=== PATIENT | female | born 1955 | race Hispanic/Latino ===

== ENCOUNTER 2017-10-25 18:28 | Observation (INO) | payer SELFPAY ==
[~2017-10-25] VITALS: Ht 152.4 cm; Wt 72.6 kg
[2017-10-25] MEDS ORDERED: SODIUM CHLORIDE 0.9% 1000ML 1,000 ML IV STA (18:55)
[2017-10-25] MEDS ORDERED: PANTOPRAZOLE 40 MG 10ML VIAL IV STA (18:55)
[2017-10-25] MEDS ORDERED: ONDANSETRON HCL INJ 2 MG/ML VIAL IV STA (18:55)
[2017-10-25] MEDS ORDERED: METOPROLOL TARTRATE INJ 1 MG/ML VIAL IV ONE (19:00)
[2017-10-25] MEDS ORDERED: ASPIRIN 81 MG CHEW TAB PO ONE ×2 (19:00→22:30)
[2017-10-25 19:09] LABS: BASOPHILS % 0.4 % (0.0-1.0); HEMATOCRIT 40.2 % (34.2-44.1); HEMOGLOBIN 14.3 g/dL (12.0-16.0); LYMPHOCYTES # (AUTO) 1.7 (1.0-3.2); LYMPHOCYTES % 14.7 % (18.0-39.1); MEAN CORPUSCULAR HEMOGLOBIN 30.8 pg (28-32); MEAN CORPUSCULAR HGB CONC 35.6 g/dL (31-35); MEAN CORPUSCULAR VOLUME 86.5 fL (81-99); MONOCYTES # (AUTO) 0.3 (0.2-0.8); MONOCYTES % 2.9 % (4.4-11.3); NEUTROPHILS # (AUTO) 9.2 (2.1-6.9); NEUTROPHILS % 81.7 % (38.7-80.0); PLATELET COUNT 304 x10e3/uL (140-360); RED BLOOD COUNT 4.65 x10e6/uL (3.6-5.1); RED CELL DISTRIBUTION WIDTH 12.7 % (11.7-14.4)
[2017-10-25 19:14] LABS: CLARITY,URINE SL CLOUDY (CLEAR); COLOR,URINE YELLOW (YELLOW); LEUKOCYTE ESTERASE ,URINE NEGATIVE (NEGATIVE); NITRITE,URINE NEGATIVE (NEGATIVE)
[2017-10-25 19:15] LABS: BILIRUBIN,URINE NEGATIVE (NEGATIVE); KETONES,URINE 1+ (NEGATIVE); PROTEIN,URINE DIPSTICK 1+ (NEGATIVE); URINE UROBILINOGEN 0.2 mg/dL (0.2 - 1)
[2017-10-25 19:30] LABS: ALANINE AMINOTRANSFERASE 15 IU/L (0-55); ALBUMIN 3.8 g/dL (3.5-5.0); ALBUMIN/GLOBULIN RATIO 1.1 (0.8-2.0); ALKALINE PHOSPHATASE 84 IU/L (40-150); AMYLASE 58 U/L (25-125); ANION GAP 15.8 mmol/L (8-16); BLOOD UREA NITROGEN 19 mg/dL (7-26); BUN/CREATININE RATIO 26 (6-25); CALCIUM 9.3 mg/dL (8.4-10.2); CARBON DIOXIDE 29 mmol/L (22-29); CHLORIDE 98 mmol/L (98-107); CREATINE KINASE 111 IU/L (29-168); CREATININE, SERUM 0.72 mg/dL (0.57-1.11); EST GLOMERULAR FILTRATION RATE > 60 ML/MIN (60-); GLUCOSE 154 mg/dL (74-118); LIPASE 15 U/L (8-78); MAGNESIUM 1.7 MG/DL (1.3-2.1); SODIUM 140 mmol/L (136-145)
[2017-10-25 19:36] LABS: INR 1.03; POTASSIUM 2.8 mmol/L (3.5-5.1); PROTHROMBIN TIME 12.7 seconds (11.9-14.5)
[2017-10-25 19:37] LABS: PARTIAL THROMBOPLASTIN TIME 24.9 seconds (23.8-35.5)
[2017-10-25] MEDS ORDERED: POTASSIUM CHLORIDE 20 MEQ TAB CR PO STA (19:39)
[2017-10-25 19:41] LABS: BACTERIA,URINE MANY /HPF; RBC,URINE 21-50 /HPF (0-5); WBC,URINE (MAN) 0-5 /HPF (0-5)
[2017-10-25 19:42] LABS: EPITHELIAL CELLS,URINE MANY /LPF
--- NOTE | 2017-10-25 19:42 | Diagnostic Imaging Report ---
Examination: Single AP view of the chest. COMPARISON: None. INDICATION: Chest pain DISCUSSION: Lines/tubes: None. Lungs: The lungs are well inflated and clear. No pneumonia or pulmonary edema. Pleura: No pleural effusion or pneumothorax. Heart and mediastinum: The heart and the mediastinum are unremarkable. Bones and soft tissues: No acute bony abnormalities. IMPRESSION: 1. No acute cardiopulmonary abnormalities. Signed by: Dr. Ryan Wren M.D. on 10/25/2017 7:38 PM
[2017-10-25] MEDS ORDERED: POTASSIUM CHLORIDE 10MEQ/100ML 200 ML IV ONE (19:45)
[2017-10-25] MEDS ORDERED: IRBESARTAN150 MG PO (20:45)
[2017-10-25] MEDS ORDERED: ATENOLOL50 MG PO (20:45)
[2017-10-25] MEDS ORDERED: METOPROLOL SUCC25 MG PO (20:45)
[2017-10-25] MEDS ORDERED: AMLODIPINE BESY10 MG PO (20:45)
--- NOTE | 2017-10-25 22:04 | Diagnostic Imaging Report ---
EXAM: CT ABDOMEN/PELVIS W DATE: 10/25/2017 8:16 PM INDICATION: Nausea, vomiting, left-sided pain COMPARISON: None TECHNIQUE: The abdomen and pelvis were scanned using a multidetector helical scanner. Coronal and sagittal reformations were obtained. CT low dose techniques were utilized, as applicable. IV Contrast: 100 ml Isovue 300/370 FINDINGS: LOWER THORAX: No consolidations LIVER/BILIARY: Punctate too small to characterize right hepatic liver hypodensity. Focal calcification along the right inferior posterior liver margin, which may be dystrophic. No ductal dilatation. GALLBLADDER: Unremarkable SPLEEN: Unremarkable PANCREAS: Unremarkable ADRENALS: No nodules KIDNEYS: Probable left inferior renal cyst. No hydronephrosis. GI TRACT: No wall thickening or evidence of obstruction. Normal appendix. Diverticulosis, most prominent the sigmoid colon, without definite acute inflammatory changes. VESSELS: Mild atherosclerotic changes. PERITONEUM/RETROPERITONEUM: No free air or fluid LYMPH NODES: No lymphadenopathy REPRODUCTIVE ORGANS/BLADDER: Unremarkable SOFT TISSUES: Unremarkable BONES: Scattered degenerative changes, worse at L4-S1. IMPRESSION: No acute abnormality. Diverticulosis without diverticulitis. Signed by: Dr Lara Dunn MD on 10/25/2017 10:00 PM
[2017-10-25] MEDS ORDERED: MORPHINE SULFATE 2 MG/ML SYR IV PRN (22:30)
[2017-10-25] MEDS ORDERED: DEXTROSE 50% SYRINGE 50 ML IV PRN (22:30)
[2017-10-25] MEDS ORDERED: ONDANSETRON HCL INJ 2 MG/ML VIAL IV PRN (22:30)
[2017-10-25] MEDS ORDERED: SODIUM CHLORIDE 0.9% 50ML 50 ML ONE (22:38)
[2017-10-25] MEDS ORDERED: IOPAMIDOL 370 MG/ML 200 ML INFUS..BTL INJ ONE (22:38)
[2017-10-26 03:24] LABS: BASOPHILS % 0.3 % (0.0-1.0); EOSINOPHILS % 0.2 % (0.0-6.0); HEMOGLOBIN 11.4 g/dL (12.0-16.0); LYMPHOCYTES # (AUTO) 2.7 (1.0-3.2); LYMPHOCYTES % 23.2 % (18.0-39.1); MEAN CORPUSCULAR HEMOGLOBIN 30.7 pg (28-32); MEAN CORPUSCULAR HGB CONC 34.5 g/dL (31-35); MEAN CORPUSCULAR VOLUME 88.9 fL (81-99); MONOCYTES # (AUTO) 0.8 (0.2-0.8); MONOCYTES % 7.3 % (4.4-11.3); NEUTROPHILS # (AUTO) 7.9 (2.1-6.9); NEUTROPHILS % 68.5 % (38.7-80.0); PLATELET COUNT 249 x10e3/uL (140-360); RED BLOOD COUNT 3.71 x10e6/uL (3.6-5.1); RED CELL DISTRIBUTION WIDTH 12.9 % (11.7-14.4)
[2017-10-26 03:33] LABS: ANION GAP 14.2 mmol/L (8-16); BLOOD UREA NITROGEN 14 mg/dL (7-26); BUN/CREATININE RATIO 22 (6-25); CARBON DIOXIDE 28 mmol/L (22-29); CHLORIDE 103 mmol/L (98-107); CHOL/HDL RATIO 3.7 (3.0-3.6); CHOLESTEROL 170 MD/DL (0-199); CREATININE, SERUM 0.65 mg/dL (0.57-1.11); EST GLOMERULAR FILTRATION RATE > 60 ML/MIN (60-); GLUCOSE 112 mg/dL (74-118); HDL CHOLESTEROL 46 MG/DL (40-60); LDL CHOLESTEROL 108 MG/DL (60-130); MAGNESIUM 1.8 MG/DL (1.3-2.1); POTASSIUM 3.2 mmol/L (3.5-5.1); SODIUM 142 mmol/L (136-145); TRIGLYCERIDES 82 MG/DL (0-149)
[2017-10-26 03:50] LABS: CREATINE KINASE MB 2.1 ng/mL (0-5.0)
[2017-10-26] MEDS: INSULIN REGULAR, HUMAN 100 UNIT/1 ML 3ML VIAL SQ SCH ×4 (07:26→20:48)
[2017-10-26] MEDS ORDERED: ASPIRIN 81 MG ENTERIC COATED PO SCH (09:00)
[2017-10-26 11:21] LABS: CREATINE KINASE MB 1.8 ng/mL (0-5.0)
[2017-10-26 16:26] VITALS: BP 118/56
[2017-10-26 19:40] VITALS: BP 130/61
[2017-10-26 20:00] VITALS: BP 130/61
--- NOTE | 2017-10-26 20:36 | History and Physical ---
This patient came into the ED for nausea and vomiting for 4 days. HISTORY OF PRESENT ILLNESS: Ms. Schrader has a history of hypertension. She was in her usual state of health until 4 days prior to admission. The patient came into the ER with nausea and vomiting for 4 days, but on the day of admission the patient complains of chest pain. The patient is admitted here through the ED for chest pain rule out ACS and also for severe dehydration and nausea and vomiting. PAST MEDICAL HISTORY: History of hypertension, history of urinary calculi. PAST SURGICAL HISTORY: . HOME MEDICATIONS: Amlodipine 10 mg, Atenolol 50 mg, and 50 mg, and metoprolol ER 25 mg. SOCIAL HISTORY: No ETOH, no IV drug abuse. REVIEW OF SYSTEMS: Positive for chest pain. No shortness of breath. Positive for nausea and vomiting. No constipation. No rectal bleeding. No hematochezia. No hematemesis. No blurry vision. No diplopia. Positive for some dryness and feeling weak. PHYSICAL EXAMINATION VITAL SIGNS: Temperature 98.7, blood pressure 118/56, respirations 16, pulse oximetry 97%. HEENT: Normocephalic, atraumatic. Pupils react to light and accommodation. CVS: S1 and S2 normal. Regular rate and rhythm. ABDOMEN: Nontender. Nondistended. BACK: Normal to inspection. NEUROLOGIC: Alert and oriented x3. No focal deficits. EKG was no acute process. Normal QRS complex. Chest x-ray normal lung markings, no acute disease. Abdominal CT scan are normal. Study was interpreted by the radiologist. There was some diverticulosis without any diverticulitis. LABORATORY DATA: CBC normal, except with a white count of 11.9. Chemistries normal except marked hyperkalemia 2.8, marked hyperglycemia of 158. Amylase normal. Lipase normal. Cardiac labs are normal. Coags are normal. Urinalysis: RBCs present, many bacteria present too. ASSESSMENT AND PLAN: The patient is admitted for nausea and vomiting, chest pain, which troponins have been negative. Acute left lower quadrant abdominal pain. Cultures have been done and will keep the patient in hospital and wait for cultures. Currently, preliminary urine culture is in progress. The patient is no morphine for pain and also Zofran 4 mg IV q.4 h. for nausea. Further recommendations depending on clinical course. Will continue to monitor the patient and also will do labs in the morning. Job#: [id number] [place]
[2017-10-26 23:40] VITALS: BP 126/60
[2017-10-27 05:00] VITALS: BP 151/69
[2017-10-27 05:23] LABS: BASOPHILS # (AUTO) 0.1 (0.0-0.1); BASOPHILS % 0.7 % (0.0-1.0); EOSINOPHILS # (AUTO) 0.1 (0.0-0.4); EOSINOPHILS % 1.1 % (0.0-6.0); HEMATOCRIT 35.4 % (34.2-44.1); HEMOGLOBIN 11.8 g/dL (12.0-16.0); LYMPHOCYTES # (AUTO) 3.5 (1.0-3.2); LYMPHOCYTES % 38.3 % (18.0-39.1); MEAN CORPUSCULAR HEMOGLOBIN 30.8 pg (28-32); MEAN CORPUSCULAR HGB CONC 33.3 g/dL (31-35); MEAN CORPUSCULAR VOLUME 92.4 fL (81-99); MONOCYTES # (AUTO) 0.6 (0.2-0.8); MONOCYTES % 6.9 % (4.4-11.3); NEUTROPHILS # (AUTO) 4.7 (2.1-6.9); NEUTROPHILS % 52.3 % (38.7-80.0); PLATELET COUNT 245 x10e3/uL (140-360); RED BLOOD COUNT 3.83 x10e6/uL (3.6-5.1); RED CELL DISTRIBUTION WIDTH 13.1 % (11.7-14.4)
[2017-10-27 05:42] LABS: ANION GAP 11.4 mmol/L (8-16); BLOOD UREA NITROGEN 18 mg/dL (7-26); BUN/CREATININE RATIO 25 (6-25); CALCIUM 8.5 mg/dL (8.4-10.2); CARBON DIOXIDE 33 mmol/L (22-29); CHLORIDE 103 mmol/L (98-107); CREATININE, SERUM 0.71 mg/dL (0.57-1.11); EST GLOMERULAR FILTRATION RATE > 60 ML/MIN (60-); GLUCOSE 100 mg/dL (74-118); POTASSIUM 3.4 mmol/L (3.5-5.1); SODIUM 144 mmol/L (136-145)
[2017-10-27] MEDS ORDERED: POTASSIUM CHLORIDE 20 MEQ TAB CR PO STA (06:51)
[2017-10-27] MEDS: INSULIN REGULAR, HUMAN 100 UNIT/1 ML 3ML VIAL SQ SCH (07:22)
[2017-10-27] MEDS ORDERED: CIPRO500 MG PO (07:23)
[2017-10-27] MEDS ORDERED: METFORMIN HCL500 MG PO (07:25)
[2017-10-27 08:19] VITALS: BP 150/67
== END 2017-10-27 08:34 | disposition home or self-care (01) ==
LOC: ER 18:28 → ERHOLD 23:04 → IMCU 10-26 14:07
PROVIDERS: ADMIT Family Medicine; ATTEND Family Medicine
DX: E87.6 Hypokalemia (principal); E86.0 Dehydration; R31.29 Other microscopic hematuria; I25.10 Atherosclerotic heart disease of native coronary artery without angina pectoris; I25.2 Old myocardial infarction; I10 Essential (primary) hypertension; Z87.442 Personal history of urinary calculi; R07.9 Chest pain, unspecified; R10.32 Left lower quadrant pain; N39.0 Urinary tract infection, site not specified; E11.9 Type 2 diabetes mellitus without complications
CPT/HCPCS: 36415 ×3; 71045; 74177; 80048 ×2; 80053; 80061; 81001; 82150; 82550 ×2; 82553 ×2; 82948; 83605; 83690; 83735 ×2; 83880; 84484 ×2; 85025 ×3; 85610; 85730; 87086; 93005; 99284; G0378 ×3; J2270; J2405; J3480; J7030; Q9967

== ENCOUNTER 2021-04-28 10:40 | Inpatient (IN) | payer MEDICARE ==
[~2021-04-28] VITALS: Ht 152.4 cm; Wt 72.6 kg
[~2021-04-28 10:40] MED LIST: AMLODIPINE BESY10 MG PO; ATENOLOL50 MG PO; CIPRO500 MG PO; IRBESARTAN150 MG PO; METFORMIN HCL500 MG PO; METOPROLOL SUCC25 MG PO
[2021-04-28] MEDS ORDERED: ONDANSETRON HCL INJ 2MG/ML 2ML 2 MG/ML VIAL IV STA (11:25)
[2021-04-28 11:42] LABS: BASOPHILS # (AUTO) 0.1 (0.0-0.1); BASOPHILS % 0.5 % (0.0-1.0); HEMATOCRIT 44.3 % (34.2-44.1); HEMOGLOBIN 15.2 g/dL (12.0-16.0); LYMPHOCYTES # (AUTO) 2.1 (1.0-3.2); LYMPHOCYTES % 18.2 % (18.0-39.1); MEAN CORPUSCULAR HEMOGLOBIN 31.1 pg (28-32); MEAN CORPUSCULAR HGB CONC 34.3 g/dL (31-35); MEAN CORPUSCULAR VOLUME 90.6 fL (81-99); MONOCYTES # (AUTO) 0.5 (0.2-0.8); NEUTROPHILS # (AUTO) 8.8 (2.1-6.9); PLATELET COUNT 309 x10e3/uL (140-360); RED BLOOD COUNT 4.89 x10e6/uL (3.6-5.1); RED CELL DISTRIBUTION WIDTH 12.9 % (11.7-14.4)
[2021-04-28 12:02] LABS: ALBUMIN 4.5 g/dL (3.5-5.0); ALBUMIN/GLOBULIN RATIO 1.2 (0.8-2.0); ANION GAP 16.1 mmol/L (8-16); CALCIUM 10.1 mg/dL (8.4-10.2); CREATININE, SERUM 1.36 mg/dL (0.57-1.11); POTASSIUM 3.1 mmol/L (3.5-5.1)
[2021-04-28] MEDS ORDERED: HALOPERIDOL LACTATE 5 MG/ML VIAL IV ONE (12:15)
[2021-04-28] MEDS ORDERED: LACTATED RINGER'S 1,000 ML INJ ONE ×2 (12:30→14:30)
[2021-04-28] MEDS ORDERED: LACTATED RINGER'S 1,000 ML ONE (12:41)
[2021-04-28] MEDS ORDERED: LACTATED RINGER'S 1,000 ML IV ONE (12:45)
[2021-04-28] MEDS ORDERED: ONDANSETRON ODT4 MG PO (14:12)
[2021-04-28] MEDS ORDERED: SODIUM CHLORIDE 0.9% 1000ML 1,000 ML IV SCH (14:30)
[2021-04-28] MEDS ORDERED: ONDANSETRON HCL INJ 2MG/ML 2ML 2 MG/ML VIAL IV PRN (14:30)
[2021-04-28] MEDS ORDERED: NIFEDIAC CC60 MG PO (15:52)
[2021-04-28] MEDS ORDERED: ATORVASTATIN CA40 MG PO (15:52)
[2021-04-28] MEDS ORDERED: LISINOPRIL40 MG PO (15:52)
[2021-04-28] MEDS: LISINOPRIL 20 MG TAB PO SCH (16:09)
[2021-04-28] MEDS: NIFEDIPINE CR 30 MG TAB PO SCH (16:09)
[2021-04-28 16:40] VITALS: BP 198/91
[2021-04-28 18:03] VITALS: BP 198/91
[2021-04-28] MEDS: POTASSIUM CHLORIDE 40 MEQ in SODIUM CHLORIDE 0.9% 1000ML 1,000 ML IV SCH (19:47)
[2021-04-28 20:00] VITALS: BP 158/87
[2021-04-28] MEDS ORDERED: KCL 20 MEQ PACKET/ ORAL SOLN PO ONE (20:30)
[2021-04-28 21:00] VITALS: BP 158/87
[2021-04-29] VITALS: BP 161/86
[2021-04-29] MEDS: METOCLOPRAMIDE HCL 10 MG/2ML VIAL IV SCH ×4 (00:23→18:17)
[2021-04-29 00:43] LABS: CLARITY,URINE SL CLOUDY (CLEAR); COLOR,URINE YELLOW (YELLOW); KETONES,URINE 2+ (NEGATIVE); LEUKOCYTE ESTERASE ,URINE NEGATIVE (NEGATIVE); NITRITE,URINE NEGATIVE (NEGATIVE); PROTEIN,URINE DIPSTICK TRACE (NEGATIVE); URINE UROBILINOGEN 0.2 mg/dL (0.2 - 1)
[2021-04-29 00:47] LABS: BACTERIA,URINE FEW /HPF; EPITHELIAL CELLS,URINE MODERATE /LPF; WBC,URINE (MAN) 0-5 /HPF (0-5)
[2021-04-29 04:00] VITALS: BP 150/79
[2021-04-29 05:00] LABS: BASOPHILS # (AUTO) 0.1 (0.0-0.1); BASOPHILS % 0.4 % (0.0-1.0); HEMATOCRIT 37.7 % (34.2-44.1); HEMOGLOBIN 13.1 g/dL (12.0-16.0); LYMPHOCYTES # (AUTO) 2.9 (1.0-3.2); LYMPHOCYTES % 25.9 % (18.0-39.1); MEAN CORPUSCULAR HEMOGLOBIN 31.3 pg (28-32); MEAN CORPUSCULAR HGB CONC 34.7 g/dL (31-35); MONOCYTES # (AUTO) 0.9 (0.2-0.8); MONOCYTES % 7.6 % (4.4-11.3); NEUTROPHILS # (AUTO) 7.4 (2.1-6.9); NEUTROPHILS % 65.8 % (38.7-80.0); PLATELET COUNT 258 x10e3/uL (140-360); RED BLOOD COUNT 4.19 x10e6/uL (3.6-5.1); RED CELL DISTRIBUTION WIDTH 12.8 % (11.7-14.4)
[2021-04-29 05:22] LABS: ANION GAP 10.7 mmol/L (8-16); CALCIUM 8.9 mg/dL (8.4-10.2); CREATININE, SERUM 0.62 mg/dL (0.57-1.11); POTASSIUM 3.7 mmol/L (3.5-5.1)
[2021-04-29] MEDS: POTASSIUM CHLORIDE 40 MEQ in SODIUM CHLORIDE 0.9% 1000ML 1,000 ML IV SCH ×2 (05:39→16:54)
[2021-04-29 07:48] VITALS: BP 146/75
[2021-04-29 08:00] VITALS: BP 146/75
[2021-04-29] MEDS: LISINOPRIL 20 MG TAB PO SCH (09:00)
[2021-04-29] MEDS: NIFEDIPINE CR 30 MG TAB PO SCH (10:16)
[2021-04-29] MEDS: Cefoxitin 1 GM in SODIUM CHLORIDE 0.9% 50ML 50 ML IV SCH ×2 (10:31→18:17)
[2021-04-29 16:10] VITALS: BP 111/57
[2021-04-29 20:00] VITALS: BP 118/52
[2021-04-30] VITALS (7 sets, daily range): BP systolic 101–155; BP diastolic 51–77
[2021-04-30] MEDS: METOCLOPRAMIDE HCL 10 MG/2ML VIAL IV SCH ×4 (01:07→18:32)
[2021-04-30] MEDS: Cefoxitin 1 GM in SODIUM CHLORIDE 0.9% 50ML 50 ML IV SCH ×3 (01:28→18:32)
[2021-04-30] MEDS: POTASSIUM CHLORIDE 40 MEQ in SODIUM CHLORIDE 0.9% 1000ML 1,000 ML IV SCH ×3 (04:20→22:48)
[2021-04-30 12:35] LABS: CHOL/HDL RATIO 2.9 (3.0-3.6)
[2021-04-30] MEDS ORDERED: FENTANYL CITRATE/PF 100MCG/2 ML INJ ONE (13:17)
[2021-04-30] MEDS ORDERED: MIDAZOLAM HCL 2 MG/2 ML VIAL ONE (13:17)
[2021-04-30] MEDS ORDERED: PROPOFOL IV EMULSION 10 MG/ML 20 ML VIAL ONE (13:18)
[2021-04-30] MEDS: LISINOPRIL 20 MG TAB PO SCH (18:33)
[2021-04-30] MEDS: NIFEDIPINE CR 30 MG TAB PO SCH (18:33)
[2021-05-01] VITALS: BP 105/57
[2021-05-01] MEDS: METOCLOPRAMIDE HCL 10 MG/2ML VIAL IV SCH ×2 (00:02→05:42)
[2021-05-01] MEDS: Cefoxitin 1 GM in SODIUM CHLORIDE 0.9% 50ML 50 ML IV SCH ×2 (01:47→09:39)
[2021-05-01 04:00] VITALS: BP 106/63
[2021-05-01 08:00] VITALS: BP 106/63
[2021-05-01 08:35] VITALS: BP 113/57
[2021-05-01] MEDS: LISINOPRIL 20 MG TAB PO SCH (09:00)
[2021-05-01] MEDS: NIFEDIPINE CR 30 MG TAB PO SCH (09:00)
[2021-05-01] MEDS ORDERED: PANTOPRAZOLE SO40 MG PO (10:57)
[2021-05-01 11:18] LABS: ANION GAP 10.1 mmol/L (8-16); CREATININE, SERUM 0.68 mg/dL (0.57-1.11); POTASSIUM 4.1 mmol/L (3.5-5.1)
[2021-05-01 12:09] VITALS: BP 123/58
== END 2021-05-01 12:39 | disposition home or self-care (01) | DRG 375 ==
LOC: ER 10:48 → ERHOLD 14:31 → MED/SURG2 16:20 → OBSVTOIN 04-29 10:07
PROVIDERS: ADMIT Internal Medicine; ATTEND Internal Medicine
PROC: 0DB78ZX Excision of Stomach, Pylorus, Via Natural or Artificial Opening Endoscopic, Diagnostic (ICD-10-PCS; 2021-04-30)
PROC: 0DB68ZX Excision of Stomach, Via Natural or Artificial Opening Endoscopic, Diagnostic (ICD-10-PCS; principal; 2021-04-30 15:39)
DX: D37.1 Neoplasm of uncertain behavior of stomach (principal); N17.9 Acute kidney failure, unspecified; K21.00 Gastro-esophageal reflux disease with esophagitis, without bleeding; K29.70 Gastritis, unspecified, without bleeding; I10 Essential (primary) hypertension; E86.0 Dehydration; E87.6 Hypokalemia; F17.200 Nicotine dependence, unspecified, uncomplicated; Z20.822 Contact with and (suspected) exposure to COVID-19; I25.2 Old myocardial infarction; I25.10 Atherosclerotic heart disease of native coronary artery without angina pectoris
CPT/HCPCS: 36415; 43239; 74177; 78227; 80048; 80053; 80061; 81001; 83036; 84484; 85025; 88305; 88312; 88342; 93005; 94799; 99284; A9537; G0378; J0694; J1630; J2250; J2405; J2765; J3010; J3480; J7030; J7121; U0002

== ENCOUNTER 2021-11-15 09:00 | Outpatient (RCR) | payer MEDICARE ==
[~2021-11-15 09:00] MED LIST changes: +ATORVASTATIN CA40 MG PO; +LISINOPRIL40 MG PO; +NIFEDIAC CC60 MG PO; +ONDANSETRON ODT4 MG PO; +PANTOPRAZOLE SO40 MG PO
== END 2021-11-18 ==
LOC: OT 09:00
PROVIDERS: ATTEND Specialist
DX: S42.222D 2-part displaced fracture of surgical neck of left humerus, subsequent encounter for fracture with routine healing (principal)

== ENCOUNTER → 2021-12-19 | Outpatient (RCR) | payer MEDICARE | LOC: OT 11-24 07:56 | PROVIDERS: ATTEND Specialist | DX: S42.222D 2-part displaced fracture of surgical neck of left humerus, subsequent encounter for fracture with routine healing (principal) ==